=== PATIENT | female | born 1950 | race Caucasian/White ===

== ENCOUNTER 2017-01-03 09:17 | Inpatient (IN) | payer OTHER ==
[2017-01-03] VITALS (12 sets, daily range): BP systolic 113–173; BP diastolic 53–71
[~2017-01-03] VITALS: Ht 157.5 cm; Wt 85.8 kg
[~2017-01-03 09:17] MED LIST: ADVIL200 MG PO; ANUSOL-HC21 GM PR; ASPIR-LOW81 MG PO; ESOMEPRAZOLE MA40 MG PO; FLUOXETINE HCL20 MG PO; FUROSEMIDE20 MG PO; GABAPENTIN100 MG PO; GLIPIZIDE5 MG PO; GLUCOTROL10 MG PO; GLUCOTROL5 MG PO; LASIX20 MG PO; LEVOTHYROXINE125 MCG PO; METOPROLOL SUCC25 MG PO; MIRALAX17 GM PO; MIRALAX255 GM PO; MOBIC7.5 MG PO; NEXIUM40 MG PO; NORVASC5 MG PO; NYSTATIN15 GM TP; PANTOPRAZOLE SO40 MG PO; PRAVACHOL40 MG PO; PRAVASTATIN SOD40 MG PO; PROZAC20 MG PO; SYNTHROID100 MCG PO; SYNTHROID125 MCG PO
[2017-01-03 10:25] LABS: BASOPHIL COUNT 0.1 K/uL (0-0.1); EOSINOPHIL (%) 1.4 % (0-5); EOSINOPHIL COUNT 0.2 K/uL (0-0.3); HEMATOCRIT 32.9 % (36.0-46.0); IMMATURE GRANULOCYTE (%) 0.8 % (0.0-0.7); IMMATURE GRANULOCYTE COUNT 1.1 K/uL; LYMPHOCYTE COUNT 2.4 K/uL (1.0-2.8); MCH 30.4 PG (29.0-34.0); MCHC 32.5 G/DL (30.0-36.0); MCV 93.5 FL (83-99); MEAN PLAT.VOLUME 10.4 uM^3 (9.5-12.4); MONOCYTE (%) 6.4 % (3-12); MONOCYTE COUNT 0.9 K/uL (0-0.8); NEUTROPHIL (%) 74.1 % (45-76); NEUTROPHIL COUNT 10.4 K/uL (1.8-6.4); PLATELET COUNT 295 K/uL (156-360); RBC DIS.WIDTH-CV 13.7 % (11.8-14.6); RBC DIS.WIDTH-SD 45.2 % (39-53); RED BLOOD COUNT 3.52 M/uL (3.80-5.20); WHITE BLOOD COUNT 13.9 K/uL (4.1-10.2)
[2017-01-03 10:33] LABS: CHLORIDE 105 mEq/L (99-109); POTASSIUM 4.6 mEq/L (3.7-5.4); SODIUM 136 mEq/L (136-147)
[2017-01-03 10:35] LABS: GLUCOSE 221 mg/dL (70-99)
[2017-01-03 10:36] LABS: ANION GAP 9 MEQ/L (2-14)
[2017-01-03 10:37] LABS: TOTAL BILIRUBIN 0.2 mg/dL (0.0-1.0)
[2017-01-03 10:38] LABS: ALKALINE PHOSPHATASE 186 IU/L (3-129)
[2017-01-03 10:39] LABS: GFR ESTIMATE (CALCULATED) 28 mL/min/
[2017-01-03 10:40] LABS: UREA NITROGEN (BUN) 46 mg/dL (9-23)
[2017-01-03] MEDS ORDERED: GLIPIZIDE XL5 MG PO (11:54)
[2017-01-03] MEDS ORDERED: LISINOPRIL2.5 MG PO (11:55)
[2017-01-03] MEDS ORDERED: OMEPRAZOLE40 M1 PO (11:55)
[2017-01-03] MEDS ORDERED: ASPIR 8181 M1 PO (11:55)
[2017-01-03 13:19] LABS: POINT-OF-CARE METER ID UU14100415
[2017-01-03 13:21] LABS: ADD MIUA? YES; BILIRUBIN NEGATIVE; BLOOD TRACE; COLOR YELLOW ((YELLOW)); GLUCOSE (STRIP) NEGATIVE; KETONES NEGATIVE; LEUKOCYTES NEGATIVE; NITRITE NEGATIVE; PH, URINE 5.5 (5-8); PROTEIN (STRIP) 30; SPECIFIC GRAVITY 1.022 (1.000-1.030); UROBILINOGEN 0.2 MG/DL (0.2-1.0)
[2017-01-03 13:30] LABS: BACTERIA RARE /HPF; EPITHELIAL CELLS 1+ /HPF; MUCUS NONE SEEN /LPF; RED BLOOD CELLS 0-5 /HPF (0-5); UCUL ADDED? NO; WHITE BLOOD CELLS 0-5 /HPF (0-5)
[2017-01-03 13:31] LABS: INTER. NORMALIZED RATIO 0.9; PROTHROMBIN TIME 9.6 (9.2-11.2); PTT 28.6 (25-32)
[2017-01-03 16:16] LABS: POINT-OF-CARE METER ID UU14100415
[2017-01-04] VITALS (12 sets, daily range): BP systolic 107–132; BP diastolic 49–95
[2017-01-04 00:01] LABS: HEMATOCRIT 29.7 % (36.0-46.0); MCH 30.3 PG (29.0-34.0); MCHC 31.6 G/DL (30.0-36.0); MCV 95.8 FL (83-99); MEAN PLAT.VOLUME 10.3 uM^3 (9.5-12.4); PLATELET COUNT 321 K/uL (156-360); RBC DIS.WIDTH-CV 13.6 % (11.8-14.6); RBC DIS.WIDTH-SD 44.4 % (39-53); WHITE BLOOD COUNT 20.8 K/uL (4.1-10.2)
[2017-01-04 00:21] LABS: TROP-I INTERPRETATION NEGATIVE; TROPONIN-I 0.02 ng/mL (0.0-0.30)
[2017-01-04 06:00] LABS: ABSOLUTE RETICULOCYTE CT. 0.08 M/uL (0.02-0.08); HEMATOCRIT 27.4 % (36.0-46.0); MCHC 31.4 G/DL (30.0-36.0); MCV 95.5 FL (83-99); MEAN PLAT.VOLUME 10.2 uM^3 (9.5-12.4); PLATELET COUNT 284 K/uL (156-360); RBC DIS.WIDTH-CV 14.1 % (11.8-14.6); RBC DIS.WIDTH-SD 49.4 % (39-53); RED BLOOD COUNT 2.87 M/uL (3.80-5.20); RETICULOCYTE COUNT 2.9 % (0.5-1.8)
[2017-01-04 06:18] LABS: ANION GAP 7 MEQ/L (2-14); CHLORIDE 106 MEQ/L (99-109); GFR ESTIMATE (CALCULATED) 32 mL/min/; GLUCOSE 291 mg/dL (70-99); POTASSIUM 4.7 MEQ/L (3.7-5.4); SAMPLE HEMOLYSIS CHECK 0; SAMPLE ICTERIC CHECK 0; SAMPLE LIPEMIA CHECK 0; SODIUM 136 MEQ/L (136-147); UREA NITROGEN (BUN) 42 mg/dL (9-23)
[2017-01-04 08:44] LABS: FERRITIN 298 NG/ML (10-291)
[2017-01-05 03:55] VITALS: BP 130/68
[2017-01-05 06:25] LABS: HEMATOCRIT 28.5 % (36.0-46.0); MCV 90.5 FL (83-99)
[2017-01-05 08:20] VITALS: BP 128/57
[2017-01-05 08:49] LABS: POINT-OF-CARE METER ID UU14149397
[2017-01-05 11:06] LABS: IRON 29 MCG/DL (35-150)
[2017-01-05 12:00] LABS: POINT-OF-CARE METER ID UU14188577
[2017-01-05 12:23] VITALS: BP 126/74
[2017-01-05 16:21] VITALS: BP 131/63
[2017-01-05 16:46] LABS: POINT-OF-CARE METER ID UU14149397
[2017-01-05 21:20] LABS: HEMATOCRIT 26.8 % (36.0-46.0); MCH 30.7 PG (29.0-34.0); MCV 90.5 FL (83-99); RBC DIS.WIDTH-CV 14.8 % (11.8-14.6); RBC DIS.WIDTH-SD 48.9 % (39-53); RED BLOOD COUNT 2.96 M/uL (3.80-5.20); WHITE BLOOD COUNT 11.7 K/uL (4.1-10.2)
[2017-01-05 21:42] LABS: ANION GAP 9 MEQ/L (2-14); CHLORIDE 105 MEQ/L (99-109); GFR ESTIMATE (CALCULATED) 37 mL/min/; GLUCOSE 232 mg/dL (70-99); SAMPLE HEMOLYSIS CHECK 0; SAMPLE ICTERIC CHECK 0; SAMPLE LIPEMIA CHECK 0; SODIUM 135 MEQ/L (136-147); UREA NITROGEN (BUN) 48 mg/dL (9-23)
[2017-01-05 22:17] LABS: EOSINOPHIL (%) 1.9 % (0-5); EOSINOPHIL COUNT 0.2 K/uL (0-0.3); HEMATOLOGY COMMENT 1 SMEAR COMPATIBLE; IMMATURE GRANULOCYTE (%) 0.3 % (0.0-0.7); LYMPHOCYTE COUNT 1.6 K/uL (1.0-2.8); MEAN PLAT.VOLUME 10.5 uM^3 (9.5-12.4); MONOCYTE (%) 7.3 % (3-12); MONOCYTE COUNT 0.8 K/uL (0-0.8); NEUTROPHIL (%) 76.1 % (45-76); NEUTROPHIL COUNT 8.8 K/uL (1.8-6.4); PLAT.SUFFICIENCY ADEQUATE; PLATELET COUNT 190 K/uL (156-360); USER ID NPD
[2017-01-05 23:22] LABS: POINT-OF-CARE METER ID UU14188577
[2017-01-06 00:06] VITALS: BP 123/59
[2017-01-06 07:22] LABS: POINT-OF-CARE METER ID UU14188577
[2017-01-06 08:26] VITALS: BP 153/65
[2017-01-06 11:30] VITALS: BP 125/58
[2017-01-06 15:56] LABS: POINT-OF-CARE METER ID UU14149397
[2017-01-06 16:30] VITALS: BP 194/75
[2017-01-07] VITALS: BP 166/70
[2017-01-07 04:00] VITALS: BP 147/64
[2017-01-07 05:48] LABS: HEMATOCRIT 25.2 % (36.0-46.0); MCH 30.5 PG (29.0-34.0); MCHC 33.3 G/DL (30.0-36.0); MCV 91.6 FL (83-99); MEAN PLAT.VOLUME 10.4 uM^3 (9.5-12.4); PLATELET COUNT 208 K/uL (156-360); RBC DIS.WIDTH-CV 14.6 % (11.8-14.6); RBC DIS.WIDTH-SD 48.9 % (39-53); RED BLOOD COUNT 2.75 M/uL (3.80-5.20); WHITE BLOOD COUNT 13.6 K/uL (4.1-10.2)
[2017-01-07 06:13] LABS: ANION GAP 8 MEQ/L (2-14); CHLORIDE 108 MEQ/L (99-109); GFR ESTIMATE (CALCULATED) 40 mL/min/; GLUCOSE 175 mg/dL (70-99); POTASSIUM 4.6 MEQ/L (3.7-5.4); SAMPLE HEMOLYSIS CHECK 0; SAMPLE ICTERIC CHECK 0; SAMPLE LIPEMIA CHECK 0; SODIUM 139 MEQ/L (136-147); UREA NITROGEN (BUN) 41 mg/dL (9-23)
[2017-01-07 06:34] LABS: POINT-OF-CARE METER ID UU14188577
[2017-01-07 08:14] VITALS: BP 162/72
[2017-01-07 12:14] LABS: POINT-OF-CARE METER ID UU14188577
[2017-01-07 12:22] LABS: ADD MIUA? YES; BILIRUBIN NEGATIVE; BLOOD LARGE; COLOR YELLOW ((YELLOW)); GLUCOSE (STRIP) 50; KETONES 20; LEUKOCYTES TRACE; NITRITE NEGATIVE; PROTEIN (STRIP) 100; SPECIFIC GRAVITY 1.016 (1.000-1.030); UROBILINOGEN 0.2 MG/DL (0.2-1.0)
[2017-01-07 13:11] LABS: RED BLOOD CELLS TNTC /HPF (0-5)
[2017-01-07 13:12] LABS: EPITHELIAL CELLS RARE /HPF
[2017-01-07 13:13] LABS: AMORPHOUS URATES CRYSTALS 2+; BACTERIA 1+ /HPF; CASTS NONE SEEN /LPF; CRYSTALS PRESENT; MUCUS 1+ /LPF; UCUL ADDED? NO; URIC ACID CRYSTALS 2+ /HPF
[2017-01-07 15:55] VITALS: BP 124/58
[2017-01-07 16:09] LABS: POINT-OF-CARE METER ID UU14188577
[2017-01-07 21:59] LABS: POINT-OF-CARE METER ID UU14188577
[2017-01-08 00:07] VITALS: BP 142/66
[2017-01-08 05:29] LABS: HEMATOCRIT 27.5 % (36.0-46.0); MCH 28.9 PG (29.0-34.0); MCHC 30.9 G/DL (30.0-36.0); MCV 93.5 FL (83-99); RBC DIS.WIDTH-CV 14.7 % (11.8-14.6); RBC DIS.WIDTH-SD 50.4 % (39-53); RED BLOOD COUNT 2.94 M/uL (3.80-5.20)
[2017-01-08 06:09] LABS: EOSINOPHIL (%) 3.3 % (0-5); EOSINOPHIL COUNT 0.4 K/uL (0-0.3); IMMATURE GRANULOCYTE (%) 0.8 % (0.0-0.7); IMMATURE GRANULOCYTE COUNT 0.1 K/uL; LYMPHOCYTE COUNT 1.9 K/uL (1.0-2.8); MONOCYTE (%) 13.4 % (3-12); MONOCYTE COUNT 1.8 K/uL (0-0.8); NEUTROPHIL COUNT 8.9 K/uL (1.8-6.4)
[2017-01-08 06:49] LABS: POINT-OF-CARE METER ID UU14188577
[2017-01-08 07:31] LABS: PLAT.SUFFICIENCY ADEQUATE
[2017-01-08 07:36] LABS: PLATELET COUNT UNABLE TO REPORT K/uL (156-360)
[2017-01-08 07:50] VITALS: BP 152/89
[2017-01-08 11:21] VITALS: BP 163/72
[2017-01-08 11:21] LABS: POINT-OF-CARE METER ID UU14149397
[2017-01-08 22:13] LABS: POINT-OF-CARE METER ID UU14149397
[2017-01-09] VITALS (8 sets, daily range): BP systolic 124–173; BP diastolic 57–73
[2017-01-09 05:34] LABS: HEMATOCRIT 25.3 % (36.0-46.0); MCH 30.7 PG (29.0-34.0); MCV 95.8 FL (83-99); RBC DIS.WIDTH-CV 14.6 % (11.8-14.6); RBC DIS.WIDTH-SD 51.7 % (39-53); RED BLOOD COUNT 2.64 M/uL (3.80-5.20); WHITE BLOOD COUNT 10.7 K/uL (4.1-10.2)
[2017-01-09 06:12] LABS: MEAN PLAT.VOLUME 10.1 uM^3 (9.5-12.4); PLATELET COUNT 280 K/uL (156-360)
[2017-01-09 06:45] LABS: ANION GAP 7 MEQ/L (2-14); CHLORIDE 111 MEQ/L (99-109); GFR ESTIMATE (CALCULATED) 53 mL/min/; MAGNESIUM 2.6 mg/dl (1.3-2.7); POTASSIUM 4.5 MEQ/L (3.7-5.4); SAMPLE HEMOLYSIS CHECK 0; SAMPLE ICTERIC CHECK 0; SAMPLE LIPEMIA CHECK 0; SODIUM 143 MEQ/L (136-147); UREA NITROGEN (BUN) 43 mg/dL (9-23)
[2017-01-09 06:46] LABS: GLUCOSE 106 mg/dL (70-99)
[2017-01-09 06:49] LABS: POINT-OF-CARE METER ID UU14149397
[2017-01-09 11:31] LABS: POINT-OF-CARE METER ID UU14149397
[2017-01-09 11:55] LABS: DIRECT BILIRUBIN 0.1 mg/dL (0.0-0.3); TOTAL BILIRUBIN 0.3 MG/DL (0.0-1.0)
[2017-01-09 12:01] LABS: ALKALINE PHOSPHATASE 246 IU/L (3-129)
[2017-01-10 04:12] VITALS: BP 172/74
[2017-01-10 06:05] LABS: HEMATOCRIT 25.8 % (36.0-46.0); MCH 28.6 PG (29.0-34.0); MCHC 30.2 G/DL (30.0-36.0); MCV 94.5 FL (83-99); MEAN PLAT.VOLUME 9.3 uM^3 (9.5-12.4); PLATELET COUNT 310 K/uL (156-360); RBC DIS.WIDTH-CV 14.3 % (11.8-14.6); RBC DIS.WIDTH-SD 49.5 % (39-53); RED BLOOD COUNT 2.73 M/uL (3.80-5.20); WHITE BLOOD COUNT 10.5 K/uL (4.1-10.2)
[2017-01-10 08:20] VITALS: BP 173/74
[2017-01-10 11:56] VITALS: BP 143/78
[2017-01-10 16:02] VITALS: BP 159/58
[2017-01-10 16:03] LABS: POINT-OF-CARE METER ID UU14149397
[2017-01-10 20:08] VITALS: BP 168/70
[2017-01-10 22:00] LABS: POINT-OF-CARE METER ID UU14149397
[2017-01-11] VITALS: BP 152/82
[2017-01-11 04:02] VITALS: BP 152/68
[2017-01-11 06:01] LABS: HEMATOCRIT 26.5 % (36.0-46.0); MCHC 30.9 G/DL (30.0-36.0); MCV 93.6 FL (83-99); MEAN PLAT.VOLUME 9.5 uM^3 (9.5-12.4); PLATELET COUNT 328 K/uL (156-360); RBC DIS.WIDTH-SD 47.7 % (39-53); RED BLOOD COUNT 2.83 M/uL (3.80-5.20); WHITE BLOOD COUNT 10.1 K/uL (4.1-10.2)
[2017-01-11 06:26] LABS: ALKALINE PHOSPHATASE 197 IU/L (3-129); ANION GAP 6 MEQ/L (2-14); CHLORIDE 108 MEQ/L (99-109); GFR ESTIMATE (CALCULATED) > 59 mL/min/; GLUCOSE 156 mg/dL (70-99); POTASSIUM 4.1 MEQ/L (3.7-5.4); SAMPLE HEMOLYSIS CHECK 0; SAMPLE ICTERIC CHECK 0; SAMPLE LIPEMIA CHECK 0; SODIUM 143 MEQ/L (136-147)
[2017-01-11 07:22] LABS: UREA NITROGEN (BUN) 19 mg/dL (9-23)
[2017-01-11 07:23] LABS: TOTAL BILIRUBIN 0.4 MG/DL (0.0-1.0)
[2017-01-11 07:36] VITALS: BP 188/79
[2017-01-11 08:39] LABS: HEMATOLOGY COMMENT 1 SMEAR COMPATIBLE; USER ID CL
[2017-01-11 08:42] LABS: EOSINOPHIL (%) 4.9 % (0-5); EOSINOPHIL COUNT 0.5 K/uL (0-0.3); IMMATURE GRANULOCYTE (%) 2.4 % (0.0-0.7); IMMATURE GRANULOCYTE COUNT 0.2 K/uL; LYMPHOCYTE COUNT 2.2 K/uL (1.0-2.8); MONOCYTE (%) 10.7 % (3-12); MONOCYTE COUNT 1.1 K/uL (0-0.8); NEUTROPHIL (%) 59.6 % (45-76)
[2017-01-11 15:39] VITALS: BP 171/74
[2017-01-11 17:06] LABS: POINT-OF-CARE METER ID UU14149397
[2017-01-11 19:31] VITALS: BP 174/73
[2017-01-11 21:49] LABS: POINT-OF-CARE METER ID UU14149397
[2017-01-11 23:48] VITALS: BP 163/71
[2017-01-12 07:06] LABS: POINT-OF-CARE METER ID UU14149397
[2017-01-12 08:07] LABS: HEMATOCRIT 27.3 % (36.0-46.0); MCH 29.6 PG (29.0-34.0); MCHC 31.5 G/DL (30.0-36.0); MCV 93.8 FL (83-99); MEAN PLAT.VOLUME 9.5 uM^3 (9.5-12.4); PLATELET COUNT 342 K/uL (156-360); RBC DIS.WIDTH-CV 13.8 % (11.8-14.6); RBC DIS.WIDTH-SD 47.1 % (39-53); RED BLOOD COUNT 2.91 M/uL (3.80-5.20); WHITE BLOOD COUNT 11.5 K/uL (4.1-10.2)
[2017-01-12 08:22] VITALS: BP 180/79
[2017-01-12 08:30] LABS: ANION GAP 6 MEQ/L (2-14); CHLORIDE 108 MEQ/L (99-109); GFR ESTIMATE (CALCULATED) > 59 mL/min/; GLUCOSE 122 mg/dL (70-99); POTASSIUM 3.9 MEQ/L (3.7-5.4); SAMPLE HEMOLYSIS CHECK 0; SAMPLE ICTERIC CHECK 0; SAMPLE LIPEMIA CHECK 0; SODIUM 145 MEQ/L (136-147); UREA NITROGEN (BUN) 14 mg/dL (9-23)
[2017-01-12 12:35] VITALS: BP 146/65
[2017-01-12 12:42] LABS: POINT-OF-CARE METER ID UU14149397
[2017-01-12 15:40] VITALS: BP 201/82
[2017-01-12 15:50] VITALS: BP 185/82
[2017-01-12 16:15] LABS: POINT-OF-CARE METER ID UU14149397
[2017-01-12 19:42] VITALS: BP 166/70
[2017-01-12 22:45] LABS: POINT-OF-CARE METER ID UU14149397
[2017-01-13 04:26] VITALS: BP 174/72
[2017-01-13 05:13] LABS: HEMATOCRIT 26.2 % (36.0-46.0); MCH 29.3 PG (29.0-34.0); MCHC 31.3 G/DL (30.0-36.0); MCV 93.6 FL (83-99); MEAN PLAT.VOLUME 9.6 uM^3 (9.5-12.4); PLATELET COUNT 381 K/uL (156-360); RBC DIS.WIDTH-SD 47.3 % (39-53); WHITE BLOOD COUNT 11.5 K/uL (4.1-10.2)
[2017-01-13 05:38] LABS: ANION GAP 7 MEQ/L (2-14); CHLORIDE 106 MEQ/L (99-109); GFR ESTIMATE (CALCULATED) > 59 mL/min/; GLUCOSE 140 mg/dL (70-99); POTASSIUM 3.8 MEQ/L (3.7-5.4); SAMPLE HEMOLYSIS CHECK 0; SAMPLE ICTERIC CHECK 0; SAMPLE LIPEMIA CHECK 0; SODIUM 141 MEQ/L (136-147); UREA NITROGEN (BUN) 19 mg/dL (9-23)
[2017-01-13 08:24] VITALS: BP 144/65
[2017-01-13 11:39] LABS: POINT-OF-CARE METER ID UU14149397
[2017-01-13 11:49] VITALS: BP 164/62
[2017-01-13 16:26] VITALS: BP 174/71
[2017-01-13 16:26] LABS: POINT-OF-CARE METER ID UU14149397
[2017-01-13 20:22] VITALS: BP 173/80
[2017-01-13 22:12] LABS: POINT-OF-CARE METER ID UU14149397
[2017-01-13 23:09] VITALS: BP 240/120
[2017-01-14 00:07] LABS: POINT-OF-CARE METER ID UU14149397
[2017-01-14 00:13] VITALS: BP 207/95
[2017-01-14 01:29] VITALS: BP 129/68
[2017-01-14 06:44] LABS: POINT-OF-CARE METER ID UU14149397
[2017-01-14 07:57] VITALS: BP 204/94
[2017-01-14 08:36] VITALS: BP 161/69
[2017-01-14 11:50] VITALS: BP 158/78
[2017-01-14 15:39] VITALS: BP 196/79
[2017-01-14 21:19] LABS: POINT-OF-CARE METER ID UU14188577
[2017-01-15 00:08] VITALS: BP 176/74
[2017-01-15 05:38] LABS: HEMATOCRIT 27.6 % (36.0-46.0); MCH 30.8 PG (29.0-34.0); MCHC 32.6 G/DL (30.0-36.0); MCV 94.5 FL (83-99); MEAN PLAT.VOLUME 9.5 uM^3 (9.5-12.4); PLATELET COUNT 382 K/uL (156-360); RBC DIS.WIDTH-CV 14.6 % (11.8-14.6); RBC DIS.WIDTH-SD 49.3 % (39-53); RED BLOOD COUNT 2.92 M/uL (3.80-5.20)
[2017-01-15 05:53] LABS: BASOPHIL COUNT 0.1 K/uL (0-0.1); EOSINOPHIL (%) 3.2 % (0-5); EOSINOPHIL COUNT 0.4 K/uL (0-0.3); IMMATURE GRANULOCYTE (%) 1.8 % (0.0-0.7); IMMATURE GRANULOCYTE COUNT 0.2 K/uL; LYMPHOCYTE COUNT 3.3 K/uL (1.0-2.8); MONOCYTE (%) 9.2 % (3-12); MONOCYTE COUNT 1.2 K/uL (0-0.8); NEUTROPHIL (%) 59.7 % (45-76); NEUTROPHIL COUNT 7.8 K/uL (1.8-6.4)
[2017-01-15 06:06] LABS: ANION GAP 6 MEQ/L (2-14); CHLORIDE 105 MEQ/L (99-109); GFR ESTIMATE (CALCULATED) 53 mL/min/; GLUCOSE 150 mg/dL (70-99); POTASSIUM 3.9 MEQ/L (3.7-5.4); SAMPLE HEMOLYSIS CHECK 0; SAMPLE ICTERIC CHECK 0; SAMPLE LIPEMIA CHECK 0; SODIUM 140 MEQ/L (136-147); UREA NITROGEN (BUN) 23 mg/dL (9-23)
[2017-01-15 06:40] LABS: POINT-OF-CARE METER ID UU14149397
[2017-01-15 08:04] VITALS: BP 186/81
[2017-01-15 11:54] LABS: POINT-OF-CARE METER ID UU14188577
[2017-01-15 16:10] VITALS: BP 181/78
[2017-01-15 16:33] LABS: POINT-OF-CARE METER ID UU14149397
[2017-01-15 19:34] VITALS: BP 178/77
[2017-01-15 22:12] LABS: POINT-OF-CARE METER ID UU14149397
[2017-01-16 00:03] VITALS: BP 160/65
[2017-01-16 04:06] VITALS: BP 160/70
[2017-01-16 05:41] LABS: MCH 30.2 PG (29.0-34.0); MCHC 31.9 G/DL (30.0-36.0); MCV 94.7 FL (83-99); MEAN PLAT.VOLUME 9.7 uM^3 (9.5-12.4); PLATELET COUNT 404 K/uL (156-360); RBC DIS.WIDTH-CV 14.7 % (11.8-14.6); RBC DIS.WIDTH-SD 49.6 % (39-53); RED BLOOD COUNT 2.85 M/uL (3.80-5.20); WHITE BLOOD COUNT 12.5 K/uL (4.1-10.2)
[2017-01-16 06:03] LABS: ANION GAP 6 MEQ/L (2-14); CHLORIDE 104 MEQ/L (99-109); GFR ESTIMATE (CALCULATED) 53 mL/min/; GLUCOSE 147 mg/dL (70-99); SAMPLE HEMOLYSIS CHECK 0; SAMPLE ICTERIC CHECK 0; SAMPLE LIPEMIA CHECK 0; SODIUM 138 MEQ/L (136-147); UREA NITROGEN (BUN) 21 mg/dL (9-23)
[2017-01-16 08:23] VITALS: BP 184/75
[2017-01-16] MEDS ORDERED: LOVENOX40 MG/0.4 SC (11:26)
[2017-01-16] MEDS ORDERED: METOPROLOL SUCC50 MG PO (11:26)
[2017-01-16] MEDS ORDERED: ASPIR-LOW81 MG PO (11:26)
[2017-01-16] MEDS ORDERED: TRAMADOL HCL50 MG PO (11:26)
[2017-01-16] MEDS ORDERED: AMLODIPINE BESY10 MG PO (11:26)
[2017-01-16] MEDS ORDERED: NICOTINE PATCH1 EAC2 TD (11:26)
[2017-01-16] MEDS ORDERED: FERROUS SULFAT325 MG PO (11:26)
[2017-01-16] MEDS ORDERED: DOCUSATE SODIU100 MG PO (11:26)
[2017-01-16 11:50] VITALS: BP 168/74
== END 2017-01-16 15:15 | DRG 480 ==
LOC: EME → EDBD 09:17 → EME 09:17 → EDOF 11:55 → 3EAST 11:55 → EDOF 12:41 → 3EAST 01-04 00:47
PROVIDERS: Emergency Medicine; Hospitalist; Internal Medicine; Internal Medicine Cardiovascular Disease; Nurse Practitioner Adult Health; Orthopaedic Surgery; Physician Assistant
PROC: 0QS606Z Reposition Right Upper Femur with Intramedullary Internal Fixation Device, Open Approach (ICD-10-PCS; principal; 2017-01-03)
PROC: 30233N1 Transfusion of Nonautologous Red Blood Cells into Peripheral Vein, Percutaneous Approach (ICD-10-PCS; 2017-01-04)
DX: S72.141A Displaced intertrochanteric fracture of right femur, initial encounter for closed fracture (principal); G93.40 Encephalopathy, unspecified; T40.2X5A Adverse effect of other opioids, initial encounter; F05 Delirium due to known physiological condition; N17.9 Acute kidney failure, unspecified; N39.0 Urinary tract infection, site not specified; W18.39XA Other fall on same level, initial encounter; R13.10 Dysphagia, unspecified; R33.9 Retention of urine, unspecified; R29.6 Repeated falls; D50.9 Iron deficiency anemia, unspecified; E11.22 Type 2 diabetes mellitus with diabetic chronic kidney disease; I12.9 Hypertensive chronic kidney disease with stage 1 through stage 4 chronic kidney disease, or unspecified chronic kidney disease; N18.3 Chronic kidney disease, stage 3 (moderate); E78.5 Hyperlipidemia, unspecified; I25.10 Atherosclerotic heart disease of native coronary artery without angina pectoris; K21.9 Gastro-esophageal reflux disease without esophagitis; E03.9 Hypothyroidism, unspecified; M79.7 Fibromyalgia; F32.9 Major depressive disorder, single episode, unspecified; F17.210 Nicotine dependence, cigarettes, uncomplicated; E66.9 Obesity, unspecified; Z95.1 Presence of aortocoronary bypass graft; Z68.34 Body mass index [BMI] 34.0-34.9, adult; Y92.009 Unspecified place in unspecified non-institutional (private) residence as the place of occurrence of the external cause; Z87.440 Personal history of urinary (tract) infections
CPT/HCPCS: 70450; 71010; 72125; 72128; 72131; 72192; 73501; 73502; 73522; 73552; 74000; 74230; 76000; 76536; 76700; 80048; 80053; 80076; 81003; 82140; 82607; 82728; 82746; 82948; 83540; 83735; 84466; 84484; 85014; 85018; 85025; 85027; 85045; 85610; 85730; 86850; 86900; 86901; 86920; 87040; 87086; 87801; 92526 GN; 92610 GN; 92611 GN; 93005; 94799; 97530 GO; 97530 GP; 99202; 99281; 99285; C1713; J0360; J0690; J0696; J1170; J1200; J1630; J1650; J1815; J1885; J1940; J2060; J2250; J2270; J2405; J2550; J2765; J3010; J3411; J7030; J7050; J7120; P9016; S0028